=== PATIENT | female | born 1985 | race Two or more races ===

== ENCOUNTER → 2020-09-28 11:25 | Outpatient (BNVA) | payer OTHER, SELFPAY | PROVIDERS: PCP Internal Medicine; Visit Provider Obstetrics & Gynecology | DX: Z76.89 Persons encountering health services in other specified circumstances (principal) ==

== ENCOUNTER → 2020-10-20 11:05 | Outpatient (BNVA) | payer OTHER, SELFPAY | PROVIDERS: PCP Internal Medicine; Visit Provider Obstetrics & Gynecology | DX: Z30.09 Encounter for other general counseling and advice on contraception (principal) | CPT/HCPCS: 99212 ==

== ENCOUNTER 2020-10-22 08:10 | Day surgery (SDC) | payer OTHER, SELFPAY ==
[2020-10-21 09:30] VITALS: BMI 33.6
--- NOTE | 2020-10-21 11:50 | HO.ANESPROP2 ---
Documented by User: Jumana Kaplan 10/21/20 11:50 HPI - Anesthesia Eval Consult details Narrative: 35yo F for Salpingectomy Laproscopic [facility] Past Medical History Medical History (Updated 10/22/20 @ 09:56 by Nusrat Cotton) HTN (hypertension) Increased BMI Smoker Snoring Social History Social History (Updated 10/22/20 @ 09:29 by Nusrat Cotton) Alcohol intake: never Smoking Status: Current every day smoker Tobacco Type: Cigarette Smoked in Last 30 Days: Yes Use of substances other than those prescribed or required for medical reasons: No Advance Directives: No Advance Directives Information Provided: No Advance Directives on File: No Sexual orientation: Straight/Heterosexual Gender identity: female Meds Allergies Allergy/AdvReac Type Severity Reaction Status Date / Time No Known Allergies Allergy Verified 10/22/20 08:25 Home Medications Medication Instructions Recorded Confirmed Type norelgestromin 150 mcg-e.estradiol 1 patch TOPICAL QWEEK 09/28/20 10/16/20 History 35 mcg/24 hr weekly transderm patch labetalol 200 mg PO BID 10/16/20 10/16/20 History Exam Exam Date and Time: October 21, 2020 1150 Height,Weight and Vital Signs: Height 5 ft 4 in Weight 88.904 kg Assessment and Plan Assessment Anesthesia Assessment: Chart Reviewed Documented by User: Nusrat Cotton 10/22/20 09:57 [facility] Past Medical History Medical History (Updated 10/22/20 @ 09:56 by Nusrat Cotton) HTN (hypertension) Increased BMI Smoker Snoring Family History Family history of problems with anesthesia: No Social History Social History (Updated 10/22/20 @ 09:29 by Nusrat Cotton) Alcohol intake: never Smoking Status: Current every day smoker Tobacco Type: Cigarette Smoked in Last 30 Days: Yes Use of substances other than those prescribed or required for medical reasons: No Advance Directives: No Advance Directives Information Provided: No Advance Directives on File: No Sexual orientation: Straight/Heterosexual Gender identity: female Meds Allergies Allergy/AdvReac Type Severity Reaction Status Date / Time No Known Allergies Allergy Verified 10/22/20 08:25 Home Medications Medication Instructions Recorded Confirmed Type norelgestromin 150 mcg-e.estradiol 1 patch TOPICAL QWEEK 09/28/20 10/16/20 History 35 mcg/24 hr weekly transderm patch labetalol 200 mg PO BID 10/16/20 10/16/20 History Exam Height,Weight and Vital Signs: Vital Signs Temp Pulse Resp BP Pulse Ox 10/22/20 08:43 98.3 F 71 16 109/57 L 98 Pertinent Lab Results Pertinent Lab Results: Lab Results 10/22/20 Range/Units 08:30 Urine Test NEGATIVE (NEGATIVE) Airway Mallampati Class: II TM Dist: >3cm Neck ROM: Full Loose/Missing/Broken Teeth: Yes (Molar top left) Heart: RRR Lungs: CTAB Assessment and Plan Assessment Anesthesia Assessment: Anesthesia Plan Discussed and Chart Reviewed Final Anesthetic Review NPO: Yes ASA Class: II Final Preanesthetic Review: No Changes in Pt Med Stat, Meds/Allgs Chart Reviewed, Consent Obtained/Reviewed and Anes Risks/Benef Reviewed Patient Risk: Intermediate Procedure Risk: Intermediate Assessment/Block/Sedation in SS: Assess/Block/Sedation-SS Anesthetic Plan Anesthetic Plan: GA Disposition: Standard PACU
[2020-10-22] VITALS (8 sets, daily range): BP systolic 109–141; BP diastolic 57–89; PULSE 64–81; RESP 16; TEMP 36.2–36.8; O2SAT 98–100
[2020-10-22] MEDS: Acetaminophen 325 MG TABLET 650 MG PO (08:36)
[2020-10-22 08:40] LABS: UPreg QC Valid YES; Urine Pregnancy NEGATIVE (NEGATIVE)
[2020-10-22] MEDS: Lactated Ringers 1,000 ML 100 ML IVCONT (08:50)
--- NOTE | 2020-10-22 10:20 | MHC.SHP ---
Pre-Procedural Eval Section A The patient is an INPATIENT: No Changes since office visit: No Cold of Flu in the past 2 weeks, No New Medical Problems, No Changes in Medication and No Patient answered all questions The History & Physical has been completed within 30 days and I have reviewed it.: Yes Section B Chief Complaint: Requesting Permanent Sterilization Allergies: Allergies Allergy/AdvReac Type Severity Reaction Status Date / Time No Known Allergies Allergy Verified 10/22/20 08:25 Plan I have reviewed the history and physical and performed a pertinent physical examination on my patient. No changes have occurred unless specified.
--- NOTE | 2020-10-22 12:13 | P.OP_ITS ---
Operative Note Operative Note Date of Service: 10/22/20 Narrative: Ms. Patterson is a 35 year old who has completed her family planning and desires a permanent form of sterilization. Surgical Risks: The patient was informed of the risks and benefits of the procedure. Risks included but were not limited to bleeding, infection, injury to the vulva, vagina, or cervix, and uterine perforation. The patient was counseled on the risk of sterilization failure being about 1% on average. The patient was informed that in the event a occurs, the risk of ectopic is increased. The patient expressed understanding of the risks involved, all questions were answered, and the patient consented to the procedure. The patient had valid sterilization consent at the time of the procedure. The patient was taken to the operating room where a time out was performed to confirm correct patient and correct procedure. General anesthesia was established. The patient was then positioned on the operating table in the dorsal lithotomy position with the legs supported using stirrups. All pressure points were padded and a Claudette hugger was placed to maintain control of core body temperature. The patient was then prepped and draped in the usual sterile fashion. A red rubber catheter was inserted and 100mL urine obtained. Attention was turned to the abdomen where a 5mm vertical infraumbilical incision was made. The 5mm trocar was attempted to be introduced under direct visualizat ion using the laparoscopy within the sleeve of the trocar; however, the trocar was unable to be introduced through the fascia and the scope became bent. A new scope was obtained and a second 5mm vertical incision was made about 1cm below the first, just distal to the umbilicus. The trocar was then introduced under direct visualization using the laparoscopy within the sleeve of the trocar. After intra-abdominal placement had been confirmed, the trocar was removed leaving the sleeve in place. The camera was introduced and pneumoperitoneum was established using carbon dioxide. Inspection of the abdominal cavity showed no gross abnormalities and there was no evidence of injury to the bowel, bladder, or vasculature. Attention was turned to the pelvis. The patient was placed into Trendelenburg position. The fallopian tubes and ovaries were visualized bilaterally. There were no abnormalities noted. A small incision was made 2cm superior and 2cm medial to the left ASIS. A 5mm trocar was introduced through this incision under direct visualization with the laparoscope. A small incision was made 2cm superior and 2cm medial to the right ASIS. A 5mm trocar was introduced through this incision under direct visualization with the laparoscope. The fallopian tubes were inspected bilaterally and the fimbriated ends of the fallopian tube were visualized bilaterally. The distal end of the left tube was grasped and lifted up and being careful to avoid the ovarian vessels, salpingectomy was performed walking the Ligasure device from the distal to the medial end of the tube, where it was cauterized and cut from the uterus at the cornua and removed through the trocar. The identical procedure was then performed on the right. The tubes were sent to pathology for analysis. Both ovaries were inspected to confirm good hemostasis at the sites of transection. The pneumoperitoneum was then evacuated. The laparoscope was removed and the trocar sleeves were removed. The skin incisions were closed using Dermabond. Good hemostasis was confirmed. The patient was transferred to the recovery room in stable condition. All needle, sponge, and instrument counts were noted to be correct x2 at the end of the procedure. EBL: 10cc
[2020-10-22] MEDS: Ketorolac Tromethamine 15 MG/ML VIAL IVPUSH (12:26)
== END 2020-10-22 13:45 | disposition home or self-care (01) ==
LOC: HO.SSS 08:10
PROVIDERS: Nurse Practitioner; PCP Internal Medicine; Visit Provider Obstetrics & Gynecology
PROC: (CPT 58661; principal; 2020-10-22 09:50)
DX: Z30.2 Encounter for sterilization (principal); I10 Essential (primary) hypertension; R06.83 Snoring; F17.210 Nicotine dependence, cigarettes, uncomplicated; Z79.899 Other long term (current) drug therapy
CPT/HCPCS: 58661; 81025; 88302; J1100; J1170; J1885; J2250; J2405; J3010

== ENCOUNTER → 2020-11-04 11:47 | Outpatient (BNVA) | payer OTHER, SELFPAY | PROVIDERS: PCP Internal Medicine; Visit Provider Obstetrics & Gynecology ==

== ENCOUNTER 2023-05-19 08:22 | Outpatient (REF) | payer OTHER, SELFPAY ==
[2023-05-19 14:11] LABS: MANUAL DIFF FLAG NO
[2023-05-19 14:21] LABS: Basophils Percent Auto 0.5 % (0-2); Eosinophils Absolute Auto 0.1 X10*3/uL (0.0-0.4); Eosinophils Percent Auto 1.4 % (0-4); Hematocrit 39.4 % (37.0-47.0); Hemoglobin 13.3 g/dl (12.0-16.0); Imm Gran Abs Auto 0.02 X10*3/uL (0.00-0.03); Imm Gran Pct Auto 0.3 % (0.0-0.4); Lymphocytes Absolute Auto 2.3 X10*3/uL (1.2-4.9); Lymphocytes Percent Auto 30.9 % (20-40); Mean Corpuscular HGB Conc 33.8 g/dl (31.0-35.0); Mean Corpuscular Hemoglobin 29.8 pg (27.0-33.0); Mean Corpuscular Volume 88.3 fL (80.0-98.0); Mean Platelet Volume 11.1 fL (9.4-12.3); Monocytes Absolute Auto 0.4 X10*3/uL (0.1-1.2); Neutrophils Absolute Auto 4.4 x10*3/uL (2.0-8.3); Neutrophils Percent Auto 60.9 % (45-73); Platelet Count 236 X10*3/uL (160-400); Red Blood Count 4.46 X10*6/uL (4.20-5.50); Red Cell Distribution Width 11.8 % (11.0-16.0); White Blood Count 7.3 X10*3/uL (4.8-10.8)
[2023-05-19 15:14] LABS: Alanine Aminotransferase 15 U/L (0-31); Albumin Level 4.2 g/dL (3.5-5.0); Alkaline Phosphatase 60 U/L (39-117); Anion Gap 10 (12-20); Aspartate Amino Transferase 13 U/L (5-31); Bilirubin Total 0.4 mg/dL (0.0-1.0); Blood Urea Nitrogen 12 mg/dL (9-16); Calcium 9.7 mg/dL (8.4-10.2); Carbon Dioxide 23 mmol/L (22-29); Chloride 109 mmol/L (96-108); Cholesterol 172 mg/dL; Estimated Glomerular Filt Rate > 60; Glucose Fasting 80 mg/dL (60-99); HDL Cholesterol 43 mg/dL; LDL Cholesterol Calculated 114 mg/dl; Potassium 3.8 mmol/L (3.3-5.1); Sodium 138 mmol/L (135-145); Total Protein 6.8 g/dL (6.5-8.0); Triglycerides 78 mg/dL
[2023-05-19 15:29] LABS: Insulin 12 uU/mL (2-29); TSH reflex Free T4 0.95 uIU/mL (0.32-4.0)
[2023-05-19 16:38] LABS: Creatinine Urine 102.02 mg/dL; Microalbumin Urine < 5.0 mg/L
[2023-05-20 03:51] LABS: HBS Num1 8.13 mIU/mL (0-7.99); HBc Num1 0.07 S/CO (0.00-0.79); Hepatitis B Core Antibody Nonreactive (Nonreactive); ~HepC Num1 0.07 S/CO (0.00-0.79); ~Hepatitis C Antibody Nonreactive (Nonreactive)
[2023-05-20 04:56] LABS: HBS Num2 8.24 mIU/mL (0-7.99); HBS Num3 7.98 mIU/mL (0-7.99); ~Hepatitis B Surface Antibody GRAYZONE (Nonreactive)
== END 2023-05-19 08:23 | disposition home or self-care (01) ==
LOC: HO.CHCLDS 08:22
PROVIDERS: Visit Provider Family Medicine
DX: I10 Essential (primary) hypertension (principal); Z13.89 Encounter for screening for other disorder
CPT/HCPCS: 36415; 80053; 80061; 82043; 83525; 84443; 85025; 86704; 86706; 86803